=== PATIENT | male | born 1990 | race Hispanic/Latino ===

== ENCOUNTER 2018-07-11 00:45 | Emergency (ER) | payer OTHER ==
[2018-07-11] MEDS ORDERED: IBUPROFEN PO ONE (01:10)
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
[2018-07-11 03:04] VITALS: BP 137/81
--- NOTE | 2018-07-11 07:37 | XRay Report ---
LEFT ANKLE, 3 views: History: left ankle pain. Bone mineralization is normal. No acute osseous abnormality or joint pathology is identified. There is moderate diffuse soft tissue swelling. IMPRESSION: Soft tissue swelling.
== END 2018-07-11 03:03 | disposition home or self-care (01) ==
LOC: ED 00:45
DX: S86.912A Strain of unspecified muscle(s) and tendon(s) at lower leg level, left leg, initial encounter (principal); F17.200 Nicotine dependence, unspecified, uncomplicated; V89.2XXA Person injured in unspecified motor-vehicle accident, traffic, initial encounter; Y93.89 Activity, other specified; Y92.488 Other paved roadways as the place of occurrence of the external cause; Y99.8 Other external cause status
CPT/HCPCS: 99283

== ENCOUNTER 2018-12-16 10:53 | Emergency (ER) | payer SELFPAY ==
[2018-12-16 11:26] VITALS: BP 157/79
--- NOTE | 2018-12-16 11:26 | Emergency Department Report ---
Blank Doc - Documentation Documentation: This is a 28-year-old male that presents with cough, left leg cramps, and left earlobe pain. This initial assessment/diagnostic orders/clinical plan/treatment(s) is/are subject to change based on patient's health status, clinical progression and re- assessment by fellow clinical providers in the ED. Further treatment and workup at subsequent clinical providers discretion. Patient/guardians urged not to elope from the ED as their condition may be serious if not clinically assessed and managed. Initial orders include: 1- Patient sent to [facility] for further evaluation and treatment 2- CXR 3- labs
--- NOTE | 2018-12-16 12:38 | XRay Report ---
CHEST 2 VIEWS INDICATION / CLINICAL INFORMATION: cough. COMPARISON: None available. FINDINGS: SUPPORT DEVICES: None. HEART / MEDIASTINUM: No significant abnormality. LUNGS / PLEURA: No significant pulmonary or pleural abnormality. No pneumothorax. ADDITIONAL FINDINGS: No significant additional findings. IMPRESSION: 1. No acute findings. Signer Name: Shawn Carcamo MD Signed: 12/16/2018 11:34 AM Workstation Name: [id number]
--- NOTE | 2018-12-16 13:43 | Emergency Department Report ---
ED General Adult HPI - General Chief complaint: Earache Stated complaint: L EAR PAIN/LEG CRAMPS Time Seen by Provider: 12/16/18 11:25 Source: patient Mode of arrival: Ambulatory Limitations: No Limitations - History of Present Illness Initial comments: Patient is a 28-year-old male who is here for several complaints. First the patient states he has a "mass" on his left ear has been present for the past several days. Patient states she's always felt a small knot behind the ear but is now tender to touch and more swollen. Patient denies nausea vomiting or direct trauma. Patient also states he has a cough that is productive of clear to yellow sputum. Patient states he did have chills last night. Lastly the patient states that he has had some leg cramps in [employer] for the last several months in his legs. - Related Data Previous Rx's Medication Instructions Recorded Last Taken Type Cyclobenzaprine [Flexeril] 10 mg PO QHS PRN #10 tablet 07/11/18 Unknown Rx Ibuprofen [Motrin] 600 mg PO Q8H PRN #20 tablet 07/11/18 Unknown Rx Benzonatate [Tessalon Perles] 100 mg PO Q8HR #10 capsule 12/16/18 Unknown Rx Ibuprofen [Motrin 600 MG tab] 600 mg PO Q8H PRN #20 tablet 12/16/18 Unknown Rx Sulfamethoxazole/Trimethoprim 1 each PO BID #14 tablet 12/16/18 Unknown Rx [Bactrim DS TAB] methOCARBAMOL [Robaxin TAB] 500 mg PO Q6H PRN #14 tablet 12/16/18 Unknown Rx predniSONE [Deltasone] 20 mg PO QDAY #5 tab 12/16/18 Unknown Rx Allergies Allergy/AdvReac Type Severity Reaction Status Date / Time No Known Allergies Allergy Unverified 07/11/18 00:51 ED Review of Systems ROS: Stated complaint: L EAR PAIN/LEG CRAMPS Other details as noted in HPI Comment: All other systems reviewed and negative ED Past Medical Hx - Past Medical History Previous Medical History?: No - Surgical History Past Surgical History?: No - Social History Smoking Status: Current Every Day Smoker Substance Use Type: Alcohol - Medications Home Medications: Home Medications Medication Instructions Recorded Confirmed Last Taken Type Cyclobenzaprine [Flexeril] 10 mg PO QHS PRN #10 tablet 07/11/18 Unknown Rx Ibuprofen [Motrin] 600 mg PO Q8H PRN #20 tablet 07/11/18 Unknown Rx Benzonatate [Tessalon Perles] 100 mg PO Q8HR #10 capsule 12/16/18 Unknown Rx Ibuprofen [Motrin 600 MG tab] 600 mg PO Q8H PRN #20 tablet 12/16/18 Unknown Rx Sulfamethoxazole/Trimethoprim 1 each PO BID #14 tablet 12/16/18 Unknown Rx [Bactrim DS TAB] methOCARBAMOL [Robaxin TAB] 500 mg PO Q6H PRN #14 tablet 12/16/18 Unknown Rx predniSONE [Deltasone] 20 mg PO QDAY #5 tab 12/16/18 Unknown Rx ED Physical Exam - General Limitations: No Limitations General appearance: alert, in no apparent distress - Head Head exam: Present: atraumatic, normocephalic - Eye Eye exam: Present: normal appearance - ENT ENT exam: Present: mucous membranes moist - Expanded ENT Exam Expanded Ear exam: Present: normal external inspection, other (behind the left ear the patient has a large pustule of the does have some surrounding erythema.) - Neck Neck exam: Present: normal inspection - Respiratory Respiratory exam: Present: normal lung sounds bilaterally. Absent: respiratory distress, wheezes, rales, rhonchi - Cardiovascular Cardiovascular Exam: Present: regular rate, normal rhythm. Absent: normal heart sounds, systolic murmur, diastolic murmur, rubs, gallop - GI/Abdominal GI/Abdominal exam: Present: soft, normal bowel sounds. Absent: distended, tenderness, guarding, rebound - Rectal Rectal exam: Present: deferred - Extremities Exam Extremities exam: Present: normal inspection, full ROM. Absent: tenderness - Back Exam Back exam: Present: normal inspection - Neurological Exam Neurological exam: Present: alert, oriented X3 - Psychiatric Psychiatric exam: Present: normal affect, normal mood - Skin Skin exam: Present: warm, dry, intact, normal color. Absent: rash ED Course Vital Signs 12/16/18 11:24 Temperature 98.8 F Pulse Rate 99 H Respiratory 16 Rate Blood Pressure 157/79 O2 Sat by Pulse 100 Oximetry ED Medical Decision Making - Radiology Data Chest x-ray is within normal limits. - Medical Decision Making Patient is a 28-year-old male has a very small pustule/early abscess to the behind the left ear. Patient likely had a sebaceous cyst that is now infected. Patient be started on Bactrim and do warm compresses. Regarding the patient's upper respiratory infection be started on indications for symptom relief. Is most likely a viral source. Patient given primary care for follow- up for his body aches that are chronic. Critical care attestation.: If time is entered above; I have spent that time in minutes in the direct care of this critically ill patient, excluding procedure time. ED Disposition Clinical Impression: Infected sebaceous cyst of skin, Muscle spasm Upper respiratory infection Qualifiers: URI type: unspecified URI Qualified Code(s): J06.9 - Acute upper respiratory infection, unspecified Disposition: - TO HOME OR SELFCARE Is pt being admited?: No Does the pt Need Aspirin: No Condition: Stable Instructions: Upper Respiratory Infection (ED), Abscess (ED) Referrals: REBECCA TORRES MD [Primary Care Provider] - 3-5 Days Time of Disposition: 13:46
== END 2018-12-16 13:52 | disposition home or self-care (01) ==
LOC: ED 10:53
DX: J06.9 Acute upper respiratory infection, unspecified (principal); L72.3 Sebaceous cyst; M62.838 Other muscle spasm; F17.200 Nicotine dependence, unspecified, uncomplicated
CPT/HCPCS: 71046